=== PATIENT | female | born 1950 | race Caucasian/White ===

== ENCOUNTER 2017-04-05 10:17 | Emergency (ER) | payer MEDICAID ==
[~2017-04-05] VITALS: Ht 162.6 cm; Wt 118.0 kg
[~2017-04-05 10:17] MED LIST: CEPH500C3 PO; HYDR-3533 PO; LORTA5 PO; PRED20 PO
[2017-04-05 10:26] VITALS: BP 224/91; PULSE 95; RESP 18; TEMP 98
[2017-04-05] MEDS ORDERED: MELO7.5T4 PO (10:30)
[2017-04-05] MEDS ORDERED: LOSA50TA PO (10:30)
[2017-04-05 10:59] LABS: AUTOMATED NEUTROPHIL # 4.3 TH/MM3 (1.8-7.7); BASOPHIL % 0.6 % (0.0-2.0); EOSINOPHIL # 0.1 TH/MM3 (0-0.4); EOSINOPHIL % 1.8 % (0.0-4.0); HEMATOCRIT 41.7 % (35.0-46.0); HEMO FLAGS DIFF FINAL; LYMPH % 26.2 % (9.0-44.0); LYMPHOCYTE # 1.7 TH/MM3 (1.0-4.8); MEAN CELL VOLUME 89.6 FL (80.0-100.0); MEAN CORPUSCULAR HEMOGLOBIN 30.9 PG (27.0-34.0); MEAN CORPUSCULAR HGB CONC 34.4 % (32.0-36.0); MONO % 5.9 % (0.0-8.0); NEUT % 65.5 % (16.0-70.0); PLATELET COUNT 253 TH/MM3 (150-450); RED BLOOD COUNT 4.65 MIL/MM3 (4.00-5.30); RED CELL DISTRIBUTION WIDTH 12.5 % (11.6-17.2); WHITE BLOOD COUNT 6.5 TH/MM3 (4.0-11.0)
--- NOTE | 2017-04-05 11:07 | PD ---
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 The patient states she had "change" in her 40s. She states that she's not had bleeding for several years. She reports it started late yesterday. She states that today she started heavier bleeding that soaked a pad. She denies a passage of tissue or clots. She's had no history of previous issues. There are no complaints of pain or cramping. There are no other reported symptoms. PFSH Past Medical History Arthritis: Yes Asthma: Yes Diminished Hearing: No ?: Not Menopausal: Yes Ectopic : Yes Social History Alcohol Use: Yes Tobacco Use: No Substance Use: No Allergies-Medications (Allergen,Severity, Reaction): Coded Allergies: Penicillin (Verified Allergy, Unknown, 04/05/17) Reported Meds & Prescriptions Reported Meds & Active Scripts Active Provera (Medroxyprogesterone Acetate) 10 Mg Tab 10 Mg PO DAILY Start day 16 Reported Meloxicam 7.5 Mg Tab 7.5 Mg PO DAILY Losartan (Losartan Potassium) 50 Mg Tab 50 Mg PO DAILY Review of Systems Except as stated in HPI: all other systems reviewed are Neg General / Constitutional: No: Fever, Chills HENT: No: Headaches, Lightheadedness Cardiovascular: No: Chest Pain or Discomfort, Palpitations Respiratory: No: Cough, Shortness of Breath Gastrointestinal: No: Nausea, Vomiting, Abdominal Pain Genitourinary: Positive: Vaginal Bleeding, No: Frequency, Dysuria, Pelvic Pain Musculoskeletal: Positive: Pain (chronic left knee pain. Patient states she's been worked up for a knee replacement.), No: Weakness Neurologic: No: Weakness, Dizziness Physical Exam Narrative GENERAL: Well-developed well-nourished female in no acute rest her distress. SKIN: Focused skin assessment warm/dry. HEAD: Atraumatic. Normocephalic. EYES: No scleral icterus. No injection or drainage. Conjunctiva are pink and not pale. ENT: Mucous membranes pink and moist. NECK: Trachea midline. No JVD. CARDIOVASCULAR: Regular rate and rhythm. No murmur appreciated. RESPIRATORY: No accessory muscle use. Clear to auscultation. Breath sounds equal bilaterally. GASTROINTESTINAL: Abdomen soft, non-tender, obese. No rebound or guarding. GENITOURINARY: In the presence of auto glass technician mitra and Nancy. Normal external genitalia without lesions or erythema. Vaginal vault with dark blood in the vault. No adnexal masses or palpable uterine masses appreciated. NEUROLOGICAL: Awake and alert. No obvious cranial nerve deficits. Motor grossly within normal limits. Normal speech. Data Data Last Documented VS Vital Signs Date Time Temp Pulse Resp B/P Pulse Ox O2 Delivery O2 Flow Rate FiO2 04/05/17 10:26 98.0 95 18 224/91 Orders Complete Blood Count With Diff (04/05/17 10:26) Basic Metabolic Panel (Bmp) (04/05/17 10:26) Iv Access Insert/Monitor (04/05/17 10:26) Ed Urine Pregnancytest Poc (04/05/17 10:26) Us Pelvis Comp W Transvaginal (04/05/17 ) Labs Laboratory Tests Test 04/05/17 10:35 White Blood Count 6.5 TH/MM3 Red Blood Count 4.65 MIL/MM3 Hemoglobin 14.4 GM/DL Hematocrit 41.7 % Mean Corpuscular Volume 89.6 FL Mean Corpuscular Hemoglobin 30.9 PG Mean Corpuscular Hemoglobin 34.4 % Concent Red Cell Distribution Width 12.5 % Platelet Count 253 TH/MM3 Mean Platelet Volume 8.0 FL Neutrophils (%) (Auto) 65.5 % Lymphocytes (%) (Auto) 26.2 % Monocytes (%) (Auto) 5.9 % Eosinophils (%) (Auto) 1.8 % Basophils (%) (Auto) 0.6 % Neutrophils # (Auto) 4.3 TH/MM3 Lymphocytes # (Auto) 1.7 TH/MM3 Monocytes # (Auto) 0.4 TH/MM3 Eosinophils # (Auto) 0.1 TH/MM3 Basophils # (Auto) 0.0 TH/MM3 CBC Comment DIFF FINAL Differential Comment Sodium Level 139 MEQ/L Potassium Level 3.8 MEQ/L Chloride Level 103 MEQ/L Carbon Dioxide Level 27.1 MEQ/L Anion Gap 9 MEQ/L Blood Urea Nitrogen 15 MG/DL Creatinine 0.91 MG/DL Estimat Glomerular Filtration 62 ML/MIN Rate Random Glucose 240 MG/DL Calcium Level 8.5 MG/DL MDM Medical Decision Making Medical Screen Exam Complete: Yes Emergency Medical Condition: Yes Differential Diagnosis Dysfunction uterine bleeding versus uterine fibroid versus friable cervix Narrative Course 66-year-old female who presents today with complaints of vaginal bleeding since yesterday. The patient has been amenorrheic for several years now. Patient denies any abdominal pain. On vaginal exam, she had dark blood in her vaginal vault. I did not appreciate any masses. Formal ultrasound shows no evidence of fibroids or acute abnormalities. There is a thickened endometrial stripe. I discussed with the patient that this could just be dysfunctional uterine bleeding. We'll start her on Provera 10 mg daily 10 days. She is instructed to follow up with a SPORTS FITNESS AND WELLNESS DIRECTOR doctor for further evaluation. She is also instructed return she does any worsening bleeding, shortness of breath, dizziness, or any other reason the concerns her. Diagnosis Primary Impression: Dysfunctional uterine bleeding Additional Impression: Arthritis of left knee Med/Other Pt SpecificInfo: Prescription(s) given Scripts Medroxyprogesterone Acetate (Provera)10 Mg Tab10 Mg PO DAILY #10 TAB Ref 0 Start day 16 Prov:Navneet Amaya MD 04/05/17 Disposition: LEFT WITHOUT BEING SEEN Navneet Amaya MD April 05, 2017 11:07
[2017-04-05 11:14] LABS: BICARBONATE 27.1 MEQ/L (21.0-32.0); POTASSIUM 3.8 MEQ/L (3.5-5.1)
--- NOTE | 2017-04-05 12:32 | RADRPT ---
EXAM DATE/TIME: 04/05/2017 11:49 [facility] COMPARISON: No previous studies available for comparison. INDICATIONS : Post menopausal bleeding. MEDICAL HISTORY : Hypertension. SURGICAL HISTORY : None. ENCOUNTER: Initial ACUITY: 1 day PAIN SCORE: 0/10 LOCATION: Bilateral pelvis MEASUREMENTS: UTERUS: 7.1 x 6.3 x 4.5 cm ENDOMETRIAL STRIPE: 19 mm RIGHT OVARY: 3.3 x 2.3 x 2.1 cm LEFT OVARY: Non visualized FINDINGS: UTERUS: The myometrium has homogeneous echotexture without mass. The endometrial stripe is somewhat thickened measuring 1.2 cm in maximum width. RIGHT OVARY: Ovary contains no mass or significant cystic lesion. LEFT OVARY: The left ovary was not visualized MISCELLANEOUS: No free fluid. CONCLUSION: 1. Nonvisualization of the left ovary. 2. No free fluid identified within the pelvis. 3. Mildly thickened endometrial stripe. The exam is otherwise unremarkable Daniel Marie MD on April 05, 2017 at 12:26 Board Certified Radiologist. This report was verified electronically.
[2017-04-05] MEDS ORDERED: PROV10TA PO (12:40)
[2017-05-09] MEDS ORDERED: VENTAER INH (06:49)
[2017-05-09] MEDS ORDERED: ASPI81CH CHEW (06:49)
[2017-05-09] MEDS ORDERED: CLON0.1T PO (06:49)
[2017-05-09] MEDS ORDERED: METF1000 PO (06:49)
[2017-05-09] MEDS ORDERED: HYDR25TA5 PO (06:49)
== END 2017-04-05 13:25 | disposition left against medical advice (07) ==
LOC: NEPC 10:17
DX: N93.8 Other specified abnormal uterine and vaginal bleeding (principal); M17.12 Unilateral primary osteoarthritis, left knee
CPT/HCPCS: 76830; 76856; 80048; 85025

== ENCOUNTER 2017-04-22 14:17 | Emergency (ER) | payer MEDICAID ==
[~2017-04-22] VITALS: Ht 162.6 cm; Wt 120.0 kg
[~2017-04-22 14:17] MED LIST changes: -CEPH500C3 PO; -HYDR-3533 PO; -LORTA5 PO; +LOSA50TA PO; +MELO7.5T4 PO; -PRED20 PO; +PROV10TA PO
[2017-04-22 14:19] VITALS: BP 226/126; PULSE 90; RESP 16; TEMP 98.3; O2SAT 98
--- NOTE | 2017-04-22 15:09 | PD ---
Physical Exam Date Seen by Provider: April 22, 2017 Time Seen by Provider: 15:06 Narrative 66 y/o female here with Uterine Bleeding and Abdominal Cramping. Patient recently seen and Dx'd with Dysfunctional Uterine bleeding and treated with Medication with resolution. Symptoms then recently restarted in the past few days. Patient did not F/U with LINE ANALYST. No Fever, Nausea, or Vomitting. No Urinary symptoms. Pain is 8/10. Patient noted to be Hypertensive but appears Stable. Awaiting Bed Placement. Data Data Last Documented VS Vital Signs Date Time Temp Pulse Resp B/P Pulse Ox O2 Delivery O2 Flow Rate FiO2 04/22/17 14:19 98.3 90 16 226/126 98 MDM Medical Record Reviewed: Yes Supervised Visit with ALBERTO: Yes Condition: Stable Tez Faustin April 22, 2017 15:09
[2017-04-22 15:43] VITALS: BP 223/98; PULSE 100; RESP 17; O2SAT 98
[2017-04-22] MEDS ORDERED: PROV10TA PO (17:57)
--- NOTE | 2017-04-22 17:58 | PD ---
HPI . 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 Patient reports she was seen here on April 05 for same. She started bleeding again today. She has used one pad. Patient admits that she has not followed up with gynecology since being seen here on April 05. The bleeding is associated with some lower abdominal pain which she rates as 5/10. She is unaware of any exacerbating factors. Symptoms were previously relieved by Provera. PFS Past Medical History Arthritis: Yes Asthma: Yes Diminished Hearing: No Hypertension: Yes ?: Not Menopausal: Yes Ectopic : Yes Past Surgical History Gynecologic Surgery: Yes (1987, ectopic rupture) Social History Alcohol Use: Yes Tobacco Use: No Substance Use: No Allergies-Medications (Allergen,Severity, Reaction): Coded Allergies: Penicillin (Verified Allergy, Unknown, 04/22/17) Reported Meds & Prescriptions Reported Meds & Active Scripts Active Provera (Medroxyprogesterone Acetate) 10 Mg Tab 10 Mg PO DAILY Start day 16 Reported Meloxicam 7.5 Mg Tab 7.5 Mg PO DAILY Losartan (Losartan Potassium) 50 Mg Tab 50 Mg PO DAILY Review of Systems Except as stated in HPI: all other systems reviewed are Neg General / Constitutional: No: Fever, Chills Gastrointestinal: Positive: Abdominal Pain Genitourinary: Positive: Pelvic Pain, Vaginal Bleeding Physical Exam Narrative GENERAL: Awake and alert and in no acute distress. SKIN: Warm and dry. HEAD: Atraumatic. Normocephalic. EYES: Pupils equal and round. NECK: Trachea midline. CARDIOVASCULAR: Regular rate and rhythm. RESPIRATORY: No accessory muscle use. ABDOMEN: Soft and nontender throughout. MUSCULOSKELETAL: No obvious deformities. No edema. NEUROLOGICAL: Awake and alert. No obvious cranial nerve deficits. Motor grossly within normal limits. Normal speech. PSYCHIATRIC: Appropriate mood and affect; insight and judgment normal. Data Data Last Documented VS Vital Signs Date Time Temp Pulse Resp B/P Pulse Ox O2 Delivery O2 Flow Rate FiO2 04/22/17 15:43 100 17 223/98 98 04/22/17 14:19 98.3 MDM Medical Decision Making Medical Screen Exam Complete: Yes Emergency Medical Condition: Yes Medical Record Reviewed: Yes (records from reviewed. She had sound done at that time which showed a thickened endometrium. She was discharged on Provera 10 mg daily for 10 days.) Differential Diagnosis Differential diagnosis of vaginal bleeding includes but is not limited to dysfunctional uterine bleeding, normal menstrual cycle, ectopic , spontaneous AB, PID. Narrative Course Patient presents with post menopausal vaginal bleeding. She needs to be seen by CLOTH STRETCHER. I will treat her with Provera again and strongly advise her to follow up with CLOTH STRETCHER. Diagnosis Primary Impression: Dysfunctional uterine bleeding Patient Instructions: Dysfunctional Uterine Bleeding (DC), General Instructions Additional Instructions: It is imperative that you follow up with a modeling and simulation analyst. Med/Other Pt SpecificInfo: Prescription(s) given Scripts Medroxyprogesterone Acetate (Provera)10 Mg Tab10 Mg PO DAILY #10 TAB Ref 0 Start day 16 Prov:Court Peoples MD 04/22/17 Disposition: 01 DISCHARGE HOME Condition: Stable Court Peoples MD April 22, 2017 17:58
[2017-04-22 18:00] VITALS: BP 197/100
[2017-05-09] MEDS ORDERED: ASPI81CH CHEW (06:49)
[2017-05-09] MEDS ORDERED: METF1000 PO (06:49)
[2017-05-09] MEDS ORDERED: VENTAER INH (06:49)
[2017-05-09] MEDS ORDERED: HYDR25TA5 PO (06:49)
[2017-05-09] MEDS ORDERED: CLON0.1T PO (06:49)
[2017-06-05] MEDS ORDERED: NORE5TAB PO (14:14)
== END 2017-04-22 18:16 | disposition home or self-care (01) ==
LOC: NEPD 14:17
DX: N93.8 Other specified abnormal uterine and vaginal bleeding (principal); R10.30 Lower abdominal pain, unspecified; I10 Essential (primary) hypertension; Z87.39 Personal history of other diseases of the musculoskeletal system and connective tissue; Z87.09 Personal history of other diseases of the respiratory system
CPT/HCPCS: 99283

== ENCOUNTER → 2017-05-09 | Day surgery (SDC) | payer MEDICAID ==
--- NOTE | 2017-05-07 16:15 | MH ---
cc: VELVET HALL MD DATE OF ADMISSION: 05/09/2017 ADMITTING DIAGNOSIS: This patient is a 66 year-old white female, she is being admitted to [facility] for evaluation of post menopausal bleeding, she is a 7, Para 5 and recently reports that she has had several episodes of moderate bleeding. We have seen her recently in the office and attempted an endometrial sampling but because of her cervix being severely stenosed this could not be done. Because of this we advised her to undergo formal diltation and curettage. PAST MEDICAL HISTORY: Patient has a history of hypertension, she is on Losartan and history of obesity. Her body mass index is 44.6. ALLERGIES PENICILLIN SOCIAL HISTORY: Nonsmoker. REVIEW OF SYSTEMS Significant for the patient having a history of asthma. PHYSICAL EXAMINATION: IN GENERAL: The patient is well developed, severely obese with a history of poor hygiene. VITAL SIGNS: Her blood pressure is 139/82. Pulse is 95. Respirations 20. HEAD, EYES, EARS, NOSE, AND THROAT: The patient had poor oral health, multiple caries. CHEST: Clear to auscultation. CARDIOVASCULAR SYSTEM: Revealed regular rate. ABDOMEN: Obese, bowel sounds are positive. PELVIC: The vulva was normal. Vagina also normal. The uterus is normal in size and there is no adnexal masses. There is some evidence of old blood in the vagina fornix. EXTREMITIES reveal no clubbing, cyanosis or edema. NEUROLOGIC: No gross neurocranial deficit. IMPRESSION: On admission was post menopausal bleeding with failed in office endometrial sampling. PLAN: Plan is for dilation and curettage. MD YAIMA Avery/lazarus /2:24 PM /4:03 PM
[~2017-05-09] VITALS: Ht 162.6 cm; Wt 121.2 kg
[~2017-05-09] MED LIST changes: +ASPI81CH CHEW; +CHLORHEXIDINE GLUCONATE 2 % 1 PACK (2 CLOTHS) TOPICAL PRN; +CLINDAMYCIN INJ 900 MG in SODIUM CHLORIDE 0.9% INJ 100 ML IV ONE; +CLON0.1T PO; +DEXAMETHASONE SOD PHOS 4 MG/ML VIAL ONE; +DO NOT ADM ANY ANTICOAGULANT DRUGS PRN; +FAMOTIDINE 20 MG/2 ML VIAL ONE; +HYDR25TA5 PO; +INSULIN HUMAN REGULAR 1,000 UNITS/10 ML VIAL SQ PRN; +LACTATED RINGER'S 1000 ML IV PRN; +LOSARTAN 50 MG TAB PO ONE; +METF1000 PO; +METOCLOPRAMIDE HCL 10 MG/2 ML VIAL ONE; +METOPROLOL TARTRATE 25 MG TAB PO PRN; +NEOSTIGMINE 3 MG/3 ML SYR IV ONE; +NORE5TAB PO; +ONDANSETRON HCL 4 MG/2 ML VIAL IV PUSH ONE; +POVIDONE IODINE 5% (ANTISEPSIS KIT) 4 APPLICATIONS EACH NARE PRN; +PROPOFOL 200 MG/20 ML AMP IV ONE; +SODIUM CHLORID 0.9% 500 ML IV PRN; +VENTAER INH; +ceFAZolin 2 GM PREMIX 50 ML IV SCH; +cloNIDine HCL 0.1 MG TAB PO ONE
[2017-05-09 06:50] VITALS: BP 199/104; PULSE 90; RESP 18; TEMP 98.3; O2SAT 97
[2017-05-09 10:44] VITALS: BP 147/75; PULSE 70; RESP 16; TEMP 97.5; O2SAT 95
--- NOTE | 2017-05-09 13:56 | EKG ---
Date Performed: 05/09/2017 Time Performed: 06:50:20 PTAGE: 66 years EKG: Sinus rhythm NORMAL ECG NO PREVIOUS TRACING DOCTOR: Mode Eng Interpretating Date/Time 05/09/2017 13:55:31
--- NOTE | 2017-05-09 14:00 | MP ---
cc: RICHRADSON HUANG MD DATE OF SURGERY 05/09/17 PREOPERATIVE DIAGNOSIS Postmenopausal bleeding. POSTOPERATIVE DIAGNOSIS Postmenopausal bleeding. OPERATION Dilation and curettage. SURGEON MD Sal ANESTHESIA General. ESTIMATED BLOOD LOSS Minimal. FINDINGS Findings were consistent with a grossly enlarged uterus. Curettings appeared copious in nature. COMPLICATIONS None. 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 PROCEDURE IN DETAIL The patient was prepped and draped in dorsal lithotomy position. A weighted speculum was placed in the posterior vaginal vault and the anterior lip of the cervix was grasped with a single-tooth tenaculum. The cervix was dilated with Kailash dilators and sounded approximately 9 cm. Sharp curetting instruments was entered into the endometrial cavity and curettings were taken. Afterwards good hemostasis was noted. Tenaculum and speculum were removed. The patient returned to the recovery room in stable condition. Richardson Huang MD JSG/EO /9:18 AM /1:51 PM
== END | disposition home or self-care (01) ==
LOC: HSDC 06:15
PROVIDERS: ATTEND Obstetrics & Gynecology
DX: N85.01 Benign endometrial hyperplasia (principal); N95.0 Postmenopausal bleeding; I10 Essential (primary) hypertension; J45.909 Unspecified asthma, uncomplicated; E11.9 Type 2 diabetes mellitus without complications; E66.9 Obesity, unspecified; Z68.42 Body mass index [BMI] 45.0-49.9, adult; Z88.0 Allergy status to penicillin; Z79.82 Long term (current) use of aspirin; Z79.84 Long term (current) use of oral hypoglycemic drugs
CPT/HCPCS: 00940; 58120; 88305; 93005; J1100; J2405; J2710; J2765; J3010; J7120

== ENCOUNTER 2017-11-19 14:23 | Observation (INO) | payer MEDICAID ==
[2017-11-19] VITALS (10 sets, daily range): BP systolic 160–236; BP diastolic 72–100; PULSE 76–105; RESP 17–18; TEMP 98.1–98.4; O2SAT 95–100
[~2017-11-19 14:23] MED LIST changes: +ASPI-516 CHEW; -ASPI81CH CHEW; -CHLORHEXIDINE GLUCONATE 2 % 1 PACK (2 CLOTHS) TOPICAL PRN; -CLINDAMYCIN INJ 900 MG in SODIUM CHLORIDE 0.9% INJ 100 ML IV ONE; -DEXAMETHASONE SOD PHOS 4 MG/ML VIAL ONE; -DO NOT ADM ANY ANTICOAGULANT DRUGS PRN; -FAMOTIDINE 20 MG/2 ML VIAL ONE; -INSULIN HUMAN REGULAR 1,000 UNITS/10 ML VIAL SQ PRN; -LACTATED RINGER'S 1000 ML IV PRN; -LOSARTAN 50 MG TAB PO ONE; +MELO7.5T27 PO; -MELO7.5T4 PO; -METOCLOPRAMIDE HCL 10 MG/2 ML VIAL ONE; -METOPROLOL TARTRATE 25 MG TAB PO PRN; -NEOSTIGMINE 3 MG/3 ML SYR IV ONE; -ONDANSETRON HCL 4 MG/2 ML VIAL IV PUSH ONE; -POVIDONE IODINE 5% (ANTISEPSIS KIT) 4 APPLICATIONS EACH NARE PRN; -PROPOFOL 200 MG/20 ML AMP IV ONE; -PROV10TA PO; -SODIUM CHLORID 0.9% 500 ML IV PRN; -ceFAZolin 2 GM PREMIX 50 ML IV SCH; -cloNIDine HCL 0.1 MG TAB PO ONE
--- NOTE | 2017-11-19 15:21 | PD ---
HPI Chief Complaint: Chest Pain Time Seen by Provider: 14:57 Travel History International Travel<30 days: No Contact w/Intl Traveler<30days: No Traveled to known affect area: No History of Present Illness HPI 67yo F with PMH of HTN and DM presents to the ED with c/o sensation of an elephant sitting on her chest at 1pm today. Associated with sob. Feels like her bronchitis but has not had this in a while. Denies any fever, n/v, abdominal pain, focal weakness or numbness. No edge burnisher uppers. Denies any recent stress test. Used ventolin and it did not help. PFSH Past Medical History Arthritis: Yes Asthma: Yes Cardiovascular Problems: Yes (HTN) Diabetes: Yes Patient Takes Glucophage: Yes Diminished Hearing: No Hypertension: Yes Musculoskeletal: Yes (ARTHRITIS) Respiratory: Yes (COPD) Tetanus Vaccination: < 5 Years ?: Not Menopausal: Yes Ectopic : Yes Past Surgical History Gynecologic Surgery: Yes (1988, ectopic rupture) Other Surgery: Yes (D&c) Social History Alcohol Use: No Tobacco Use: No Substance Use: No Allergies-Medications (Allergen,Severity, Reaction): Coded Allergies: penicillin G (Unverified Allergy, Unknown, 11/19/17) Reported Meds & Prescriptions Reported Meds & Active Scripts Active Ventolin Hfa 18 GM Inh (Albuterol Sulfate) 90 Mcg/Act Aer 2 Puff INH Q4H PRN Deltasone (Prednisone) 20 Mg Tab 20 Mg PO BID 5 Days Reported Aspirin 81 Mg Chew 81 Mg CHEW DAILY Ventolin Hfa 18 GM Inh (Albuterol Sulfate) 90 Mcg/Act Aer 2 Puff INH Q6H PRN Metformin (Metformin HCl) 1,000 Mg Tab 1,000 Mg PO BIDPC With meals Clonidine (Clonidine HCl) 0.1 Mg Tab 0.1 Mg PO BID Hydrochlorothiazide 25 Mg Tab 25 Mg PO DAILY Meloxicam 7.5 Mg Tab 7.5 Mg PO DAILY Losartan (Losartan Potassium) 50 Mg Tab 50 Mg PO DAILY Review of Systems Except as stated in HPI: all other systems reviewed are Neg Physical Exam Narrative GENERAL: 67yo not in distress. SKIN: Focused skin assessment warm/dry. HEAD: Atraumatic. Normocephalic. EYES: Pupils equal and round. No scleral icterus. No injection or drainage. ENT: No nasal bleeding or discharge. Mucous membranes pink and moist. NECK: Trachea midline. No JVD. CARDIOVASCULAR: Regular rate and rhythm. No murmur appreciated. RESPIRATORY: No accessory muscle use. Clear to auscultation. Breath sounds equal bilaterally. GASTROINTESTINAL: Abdomen soft, non-tender, nondistended. MUSCULOSKELETAL: No obvious deformities. No clubbing. No cyanosis. No edema. NEUROLOGICAL: Awake and alert. No obvious cranial nerve deficits. Motor grossly within normal limits. Normal speech. PSYCHIATRIC: Appropriate mood and affect; insight and judgment normal. Data Data Last Documented VS Vital Signs Date Time Temp Pulse Resp B/P (MAP) Pulse Ox O2 Delivery O2 Flow Rate FiO2 11/19/17 14:53 76 17 164/72 (102) 100 Room Air 11/19/17 14:25 98.4 Orders Orders Electrocardiogram (11/19/17 ) Basic Metabolic Panel (Bmp) (11/19/17 15:05) B-Type Natriuretic Peptide (11/19/17 15:05) Complete Blood Count With Diff (11/19/17 15:05) Prothrombin Time / Inr (Pt) (11/19/17 15:05) Act Partial Throm Time (Ptt) (11/19/17 15:05) Troponin I (11/19/17 15:05) Chest, Single Ap (11/19/17 15:05) Albuterol-Ipratropium Neb (Duoneb Neb) (11/19/17 15:30) Prednisone (Deltasone) (11/19/17 15:30) Potassium, Serum (K) (11/19/17 16:28) Sodium Chlor 0.9% 1000 Ml Inj (Ns 1000 M (11/19/17 17:15) Admit Order (Ed Use Only) (11/19/17 18:43) Labs Laboratory Tests Test 11/19/17 15:10 11/19/17 16:57 White Blood Count 9.2 TH/MM3 Red Blood Count 4.33 MIL/MM3 Hemoglobin 13.5 GM/DL Hematocrit 39.8 % Mean Corpuscular Volume 92.0 FL Mean Corpuscular Hemoglobin 31.3 PG Mean Corpuscular Hemoglobin Concent 34.0 % Red Cell Distribution Width 12.4 % Platelet Count 328 TH/MM3 Mean Platelet Volume 8.4 FL Neutrophils (%) (Auto) 71.2 % Lymphocytes (%) (Auto) 21.8 % Monocytes (%) (Auto) 4.4 % Eosinophils (%) (Auto) 1.7 % Basophils (%) (Auto) 0.9 % Neutrophils # (Auto) 6.6 TH/MM3 Lymphocytes # (Auto) 2.0 TH/MM3 Monocytes # (Auto) 0.4 TH/MM3 Eosinophils # (Auto) 0.2 TH/MM3 Basophils # (Auto) 0.1 TH/MM3 CBC Comment DIFF FINAL Differential Comment Prothrombin Time 9.7 SEC Prothromb Time International Ratio 1.0 RATIO Activated Partial Thromboplast Time 21.8 SEC Blood Urea Nitrogen 14 MG/DL Creatinine 1.33 MG/DL Random Glucose 311 MG/DL Calcium Level 8.9 MG/DL Sodium Level 132 MEQ/L Potassium Level 5.8 MEQ/L 3.8 MEQ/L Chloride Level 100 MEQ/L Carbon Dioxide Level 27.3 MEQ/L Anion Gap 5 MEQ/L Estimat Glomerular Filtration Rate 40 ML/MIN Troponin I LESS THAN 0.02 NG/ML B-Type Natriuretic Peptide 57 PG/ML [facility] Medical Decision Making Medical Screen Exam Complete: Yes Emergency Medical Condition: Yes Interpretation(s) EKG: NSR 79bpm. Normal axis. TWI V2. No ST segment elevation or depression. Differential Diagnosis ACS vs. Pneumonia vs. COPD Narrative Course 67yo F with sensation of "elephant sitting on her chest" since 1pm today. Pt with cardiac risk factors including DM, HTN and obesity. Denies being a smoker but said bronchitis runs in her family. She is not wheezing but has history of bronchitis so will give nebulizers. Labs reviewed, no leukocytosis. K: 5.8 but hemolyzed. Repeat K is 3.8. Troponin negative. BNP 57. Glucose elevated at 311, normal anion gap. CO2 normal. Pt given NS IVF. Pt given duonebs and prednisone and feels better. Denies any sob or chest pain. CXR showed normal exam except trachea deviated from left to right suspected to be related to goiter. Informed pt and she can follow up as outpatient. Pt is well appearing. However, still want to admit for repeat EKG and cardiac enzyme for chest pain given risk factor. BP elevated and due for her losartan 50mg PO so given. Diagnosis Primary Impression: Chest pain Qualified Codes: R07.9 - Chest pain, unspecified Additional Impression: COPD exacerbation Med/Other Pt SpecificInfo: Prescription(s) given Scripts Albuterol 18 GM Inh (Ventolin Hfa 18 GM Inh) 90 Mcg/Act Aer 2 PUFF INH Q4H Y for SHORTNESS OF BREATH, #1 INHALER 0 Refills Prov: Imelda Campo DO 11/19/17 Prednisone (Deltasone) 20 Mg Tab 20 MG PO BID for 5 Days, #10 TAB 0 Refills Prov: Imelda Campo DO 11/19/17 Imelda Campo DO Nov 19, 2017 15:21
[2017-11-19] MEDS ORDERED: predniSONE 50 MG TAB PO ONE (15:30)
[2017-11-19 15:43] LABS: AUTOMATED NEUTROPHIL # 6.6 TH/MM3 (1.8-7.7); BASOPHIL # 0.1 TH/MM3 (0-0.2); BASOPHIL % 0.9 % (0.0-2.0); EOSINOPHIL # 0.2 TH/MM3 (0-0.4); EOSINOPHIL % 1.7 % (0.0-4.0); HEMATOCRIT 39.8 % (35.0-46.0); HEMO FLAGS DIFF FINAL; LYMPH % 21.8 % (9.0-44.0); MEAN CORPUSCULAR HEMOGLOBIN 31.3 PG (27.0-34.0); MONO % 4.4 % (0.0-8.0); NEUT % 71.2 % (16.0-70.0); PLATELET COUNT 328 TH/MM3 (150-450); RED BLOOD COUNT 4.33 MIL/MM3 (4.00-5.30); RED CELL DISTRIBUTION WIDTH 12.4 % (11.6-17.2); WHITE BLOOD COUNT 9.2 TH/MM3 (4.0-11.0)
--- NOTE | 2017-11-19 15:52 | RADRPT ---
EXAM DATE/TIME: 11/19/2017 15:26 [facility] COMPARISON: No previous studies available for comparison. INDICATIONS : Chest pain started today. MEDICAL HISTORY : Hypertension. SURGICAL HISTORY : None. ENCOUNTER: Initial ACUITY: 1 day PAIN SCORE: 5/10 LOCATION: Bilateral chest FINDINGS: A single view of the chest demonstrates the lungs to be symmetrically aerated without evidence of mas s, infiltrate or effusion. The cardiomediastinal contours are unremarkable. Osseous structures are intact. CONCLUSION: Normal examination except that the trachea is deviated from left to right suspected to be related to goiter. Jonhnie Mao MD on November 19, 2017 at 15:49 Board Certified Radiologist. This report was verified electronically.
[2017-11-19 15:53] LABS: APTT (PATIENT) 21.8 SEC (24.3-30.1); PROTHROMBIN TIME - PATIENT 9.7 SEC (9.8-11.6)
[2017-11-19] MEDS: RESP: ALBUTEROL 2.5 MG/IPRATROPIUM 0.5 MG NEB (SCH) INH (16:00)
[2017-11-19 16:06] LABS: ANION GAP 5 MEQ/L (5-15); BICARBONATE 27.3 MEQ/L (21.0-32.0); BLOOD UREA NITROGEN 14 MG/DL (7-18); CHLORIDE 100 MEQ/L (98-107); GLOMERULAR FILTRATION RATE 40 ML/MIN (>89); SODIUM (NA) 132 MEQ/L (136-145)
[2017-11-19 16:07] LABS: POTASSIUM 5.8 MEQ/L (3.5-5.1)
[2017-11-19] MEDS ORDERED: SODIUM CHLOR 0.9% 1000 ML INJ 1,000 ML IV ONE (17:15)
[2017-11-19] MEDS ORDERED: PRED-503 PO (18:50)
[2017-11-19] MEDS ORDERED: VENTAER INH (18:50)
[2017-11-19] MEDS ORDERED: ASPIRIN 325 MG TAB PO ONE (19:00)
[2017-11-19] MEDS ORDERED: SODIUM CHLORIDE 0.9% FLUSH 10 ML FLUSH IV FLUSH PRN (19:00)
[2017-11-19 19:44] LABS: CREATINE KINASE 80 U/L (26-192)
[2017-11-19] MEDS ORDERED: LOSARTAN 50 MG TAB PO ONE (19:45)
[2017-11-19] MEDS: SODIUM CHLORIDE 0.9% FLUSH 10 ML FLUSH IV FLUSH SCH (21:01)
[2017-11-20 03:57] VITALS: BP 171/78; PULSE 70; RESP 19; TEMP 97.4; O2SAT 95
[2017-11-20 05:33] VITALS: PULSE 64
[2017-11-20 06:57] VITALS: PULSE 75
[2017-11-20 07:34] VITALS: BP 127/60; PULSE 70; RESP 18; TEMP 98; O2SAT 97
[2017-11-20] MEDS ORDERED: ONDANSETRON HCL 4 MG/2 ML VIAL IV PUSH PRN (07:45)
[2017-11-20] MEDS ORDERED: NITROGLYCERIN 0.4 MG SL 25 TABS/BTL SL PRN (07:45)
[2017-11-20] MEDS ORDERED: ACETAMINOPHEN 500 MG CPLT PO PRN (07:45)
[2017-11-20] MEDS: SODIUM CHLORIDE 0.9% FLUSH 10 ML FLUSH IV FLUSH SCH (08:03)
--- NOTE | 2017-11-20 08:07 | HHI.HP ---
HPI Primary Care Physician Thor Schumacher DO Chief Complaint Chest pain History of Present Illness 67-year-old female with history of hypertension, diabetes, and COPD presents to emergency room for further evaluation after developing chest pain during a "bronchitis attack." Onset yesterday afternoon. Location substernal. Characterized as "someone sitting on my chest." No radiation of pain. Duration 20-30 minutes. No associated symptoms of nausea, vomiting, dyspnea, or diaphoresis. No known precipitating or relieving factors. Denies similar pain in the past. Endorses current "dry cough." No sputum production. No recent fever or chills. Currently is chest pain-free. Review of Systems General: No fatigue,weakness, fever, chills, or recent illness change in appetite. Has been her general state of health. HEENT: No BETHEA, no vision changes, no nasal congestion or drainage, no dysphasia CV: As stated above. No current CP or pressure. No palpitations, intermittent leg pain, dizziness RESP: Current nonproductive cough. History of COPD. No shortness of breath, wheeze, or hemoptysis GI: No nausea, vomiting, bowel changes, diarrhea, constipation, pain, distention , melena, blood in the stool. No change in appetite, no unintentional weight gain or weight loss. : No dysuria, urgency, frequency EXT: No lower leg edema MS: No discomfort or change in ROM NEURO: No difficulty with balance, LOC, motor/sensory deficits PSYCH: No anxiety, depression SKIN: No rashes, no concerning lesions Past Family Social History Allergies: Coded Allergies: penicillin G (Unverified Allergy, Unknown, 11/19/17) Past Medical History Hypertension, type II diabetic, COPD, arthritis Past Surgical History D&C Reported Medications Reported Meds & Active Scripts Active Ventolin Hfa 18 GM Inh (Albuterol Sulfate) 90 Mcg/Act Aer 2 Puff INH Q4H PRN Deltasone (Prednisone) 20 Mg Tab 20 Mg PO BID 5 Days Reported Aspirin 81 Mg Chew 81 Mg CHEW DAILY Ventolin Hfa 18 GM Inh (Albuterol Sulfate) 90 Mcg/Act Aer 2 Puff INH Q6H PRN Metformin (Metformin HCl) 1,000 Mg Tab 1,000 Mg PO BIDPC With meals Clonidine (Clonidine HCl) 0.1 Mg Tab 0.1 Mg PO BID Hydrochlorothiazide 25 Mg Tab 25 Mg PO DAILY Meloxicam 7.5 Mg Tab 7.5 Mg PO DAILY Losartan (Losartan Potassium) 50 Mg Tab 50 Mg PO DAILY Active Ordered Medications Current Medications Medications (Trade) Dose Ordered Sig/Yvan Route Start Time Stop Time Status Last Admin (NS Flush) 2 ml UNSCH PRN IV FLUSH 11/19/17 19:00 (NS Flush) 2 ml BID IV FLUSH 11/19/17 21:00 11/20/17 08:03 (Tylenol) 500 mg Q4H PRN PO 11/20/17 07:45 (Zofran Inj) 4 mg Q6H PRN IV PUSH 11/20/17 07:45 (Nitrostat Sl) 0.4 mg Q5M PRN SL 11/20/17 07:45 (Aspirin) 325 mg DAILY PO 11/20/17 09:00 11/20/17 08:03 Family History Brother age 55 myocardial infarction. Social History Known hypertension and type 2 diabetes. No known hyperlipidemia. Currently not taking statin with diagnosis of diabetes. Clinical nonsmoker. Denies any alcohol. Endorses sets here lifestyle. Past cardiac testing None Physical Exam Vital Signs Vital Signs Date Time Temp Pulse Resp B/P (MAP) Pulse Ox O2 Delivery O2 Flow Rate FiO2 11/20/17 07:34 98.0 70 18 127/60 (82) 97 11/20/17 06:57 75 11/20/17 05:33 64 11/20/17 03:57 97.4 70 19 171/78 (109) 95 11/19/17 23:26 76 11/19/17 23:09 98.1 78 17 166/77 (106) 95 11/19/17 22:15 11/19/17 21:43 77 160/74 (102) 11/19/17 21:31 79 170/73 (105) 11/19/17 21:13 99 11/19/17 21:01 180/88 (118) 11/19/17 20:04 172/82 (112) 11/19/17 19:06 87 192/91 (124) 11/19/17 14:53 76 17 164/72 (102) 100 Room Air 11/19/17 14:44 82 99 Room Air 11/19/17 14:25 98.4 105 18 236/100 (145) 97 Room Air Physical Exam GENERAL: Alert WN, WD, NAD, pleasant, obese female who appears older than stated age. HEAD: NC, AT EYES: Sclera clear, conjunctiva without injection ENT: Mucous membranes pink and moist CV: RRR, without murmur, rub, gallop, no JVD, S1-S2 no S3-S4. RESP: Clear lungs throughout bilateral, no crackles, wheeze, rhonchi, symmetrical chest rise, nonlabored, able to speak in full sentences ABD: Soft, NT, ND, no masses, positive bowel tones EXT: Pulses +24, no dependent edema MS: Normal tone 4 extremities, no obvious deformities, full range of motion NEURO: CN II through CN XII grossly intact, motor strength 5/5 PSYCH: A+O 3, pleasant affect, appropriate speech, appropriate mood and affect , insight and judgment SKIN: Normal turgor, normal texture, no lesions, no rashes, brisk cap refill, even hair distribution Laboratory Laboratory Tests Test 11/19/17 15:10 11/19/17 16:57 11/19/17 19:05 11/19/17 23:30 White Blood Count 9.2 Red Blood Count 4.33 Hemoglobin 13.5 Hematocrit 39.8 Mean Corpuscular Volume 92.0 Mean Corpuscular Hemoglobin 31.3 Mean Corpuscular Hemoglobin Concent 34.0 Red Cell Distribution Width 12.4 Platelet Count 328 Mean Platelet Volume 8.4 Neutrophils (%) (Auto) 71.2 Lymphocytes (%) (Auto) 21.8 Monocytes (%) (Auto) 4.4 Eosinophils (%) (Auto) 1.7 Basophils (%) (Auto) 0.9 Neutrophils # (Auto) 6.6 Lymphocytes # (Auto) 2.0 Monocytes # (Auto) 0.4 Eosinophils # (Auto) 0.2 Basophils # (Auto) 0.1 CBC Comment DIFF FINAL Differential Comment Prothrombin Time 9.7 Prothromb Time International Ratio 1.0 Activated Partial Thromboplast Time 21.8 Blood Urea Nitrogen 14 Creatinine 1.33 Random Glucose 311 Calcium Level 8.9 Sodium Level 132 Potassium Level 5.8 3.8 Chloride Level 100 Carbon Dioxide Level 27.3 Anion Gap 5 Estimat Glomerular Filtration Rate 40 Troponin I LESS THAN 0.02 LESS THAN 0.02 0.03 B-Type Natriuretic Peptide 57 Total Creatine Kinase 80 40 Result Diagram: 11/19/17 1510 11/19/17 1657 Imaging Last Impressions Chest X-Ray 11/19/17 1505 Signed Impressions: Service Date/Time: Sunday, November 19, 2017 15:26 - CONCLUSION: Normal examination except that the trachea is deviated from left to right suspected to be related to goiter. Johnnie Mao MD Course EKG Sinus rhythm, normal axis, no ST or T-segment changes Caprini VTE Risk Assessment Caprini VTE Risk Assessment: No/Low Risk (score <= 1) Caprini Risk Assessment Model Point Value = 1 Point Value = 2 Point Value = 3 Point Value = 5 Age 41-60 Minor surgery BMI > 25 kg/m2 Swollen legs Varicose veins or History of unexplained or recurrent spontaneous Oral contraceptives or hormone replacement Sepsis (< 1 month) Serious lung disease, including pneumonia (< 1 month) Abnormal pulmonary function Acute myocardial infarction Congestive heart failure (< 1 month) History of inflammatory bowel disease Medical patient at bed rest Age 61-74 Arthroscopic surgery Major open surgery (> 45 min) Laparoscopic surgery (> 45 min) Malignancy Confined to bed (> 72 hours) Immobilizing plaster cast Central venous access Age >= 75 History of VTE Family history of VTE Factor V Leiden Prothrombin [id number] Lupus anticoagulant Anticardiolipin antibodies Elevated serum homocysteine Heparin-induced thrombocytopenia Other congenital or acquired thrombophilia Stroke (< 1 month) Elective arthroplasty Hip, pelvis, or leg fracture Acute spinal cord injury (< 1 month) Prophylaxis Regimen Total Risk Factor Score Risk Level Prophylaxis Regimen 0-1 Low Early ambulation 2 Moderate Order ONE of the following: *Sequential Compression Device (SCD) *Heparin 5000 units SQ BID 3-4 Higher Order ONE of the following medications: *Heparin 5000 units SQ TID *Enoxaparin/Lovenox 40 mg SQ daily (WT < 150 kg, CrCl > 30 mL/min) *Enoxaparin/Lovenox 30 mg SQ daily (WT < 150 kg, CrCl > 10-29 mL/min) *Enoxaparin/Lovenox 30 mg SQ BID (WT < 150 kg, CrCl > 30 mL/min) AND/OR *Sequential Compression Device (SCD) 5 or more Highest Order ONE of the following medications: *Heparin 5000 units SQ TID (Preferred with Epidurals) *Enoxaparin/Lovenox 40 mg SQ daily (WT < 150 kg, CrCl > 30 mL/min) *Enoxaparin/Lovenox 30 mg SQ daily (WT < 150 kg, CrCl > 10-29 mL/min) *Enoxaparin/Lovenox 30 mg SQ BID (WT < 150 kg, CrCl > 30 mL/min) AND *Sequential Compression Device (SCD) Assessment and Plan Assessment and Plan #1 Chest pain-admitted to chest pain center. Ruled out with 3 sets of EKGs, cardiac enzymes, and monitored overnight. Seen and evaluated by Dr. Winston Schreiber. Proceed with chemical stress test. If unremarkable, plans would be to discharge home with follow up with PCP. #2 History of COPD-lungs clear, no acute findings, continue albuterol therapy. #3 Diabetes type 2-continue Metformin after eating. Encouraged her to discuss with her PCP starting statin therapy due to known diabetes. Verbalized understanding #4 Hypertension-continue Losartan [facility] Nov 20, 2017 08:07
[2017-11-20] MEDS ORDERED: ASPIRIN 325 MG TAB PO SCH (09:00)
--- NOTE | 2017-11-20 09:43 | EKG ---
Date Performed: 11/19/2017 Time Performed: 23:22:57 PTAGE: 67 years EKG: Sinus rhythm LOW QRS VOLTAGE IN PRECORDIAL LEADS BORDERLINE ECG PREVIOUS TRACING : 11/19/2017 23.21 Since previous tracing, no significant change noted DOCTOR: Winston Schreiber Interpretating Date/Time 11/20/2017 09:41:58
--- NOTE | 2017-11-20 09:45 | EKG ---
Date Performed: 11/19/2017 Time Performed: 21:47:27 PTAGE: 67 years EKG: Sinus rhythm LOW QRS VOLTAGE IN PRECORDIAL LEADS BORDERLINE ECG PREVIOUS TRACING : 11/19/2017 19.10 Since previous tracing, no significant change noted DOCTOR: Winston Schreiber Interpretating Date/Time 11/20/2017 09:44:21
--- NOTE | 2017-11-20 09:47 | EKG ---
Date Performed: 11/19/2017 Time Performed: 19:10:40 PTAGE: 67 years EKG: Sinus rhythm LOW QRS VOLTAGE IN PRECORDIAL LEADS BORDERLINE ECG PREVIOUS TRACING : 11/19/2017 15.06 Since previous tracing, no significant change noted DOCTOR: Winston Schreiber Interpretating Date/Time 11/20/2017 09:46:09
--- NOTE | 2017-11-20 09:48 | EKG ---
Date Performed: 11/19/2017 Time Performed: 15:06:59 PTAGE: 67 years EKG: Sinus rhythm LOW QRS VOLTAGE IN PRECORDIAL LEADS BORDERLINE ECG PREVIOUS TRACING : 05/09/2017 06.50 Since previous tracing, no significant change noted DOCTOR: Winston Schreiber Interpretating Date/Time 11/20/2017 09:47:37
[2017-11-20] MEDS ORDERED: LOSARTAN 50 MG TAB PO SCH (11:00)
[2017-11-20 11:38] VITALS: BP 151/72; PULSE 75; RESP 20; TEMP 97.6; O2SAT 97
[2017-11-20] MEDS ORDERED: REGADENOSON INJ 0.4 MG/5 ML SYR ONE (13:49)
--- NOTE | 2017-11-20 15:24 | RADRPT ---
EXAM DATE/TIME: 11/20/2017 13:21 [facility] COMPARISON: No previous studies available for comparison. INDICATIONS : Substernal chest pain with dyspnea. Angina. DOSE: 35 mCi Tc99m Myoview at stress. 11 mCi Tc99m Myoview at rest. 0.4 mg Lexiscan STRESS SYMPTOMS: Asymptomatic. EJECTION FRACTION: 66% MEDICAL HISTORY : Hypertension. Diabetes mellitus type 2. Chronic obstructive pulmonary disease. SURGICAL HISTORY : None. ENCOUNTER: Initial ACUITY: 1 day PAIN SCALE: 7/10 LOCATION: Substernal chest TECHNIQUE: The patient underwent pharmacologic stress with infusion of prescribed dose. Continuous ECG tracing was monitored during stress. Gated SPECT imaging was performed after stress and conventional SPECT i maging was performed at rest. The examination was performed on a SPECT/CT scanner, both attenuation and non-corrected datasets were reviewed. FINDINGS: DISTRIBUTION: The maximum perfused segment at stress is in the inferior wall. PERFUSION STUDY: The pattern of perfusion at stress shows fixed diminished perfusion to the low anterior and lateral w alls extending into the apex. GATED STUDY: There is intact wall motion and thickening without hypokinetic or dyskinetic segments. CONCLUSION: 1. The diminished perfusion to the low anterior and lateral wall extending into the apex possibly rep resenting an old area of infarction. 2. No reversibility to suggest ischemia. 3. Adequate wall motion throughout with estimated ejection fraction of 66%. RISK CATEGORY: Low (<1% Annual Mortality Rate) Elkin Herrera MD on November 20, 2017 at 15:13 Board Certified Radiologist. This report was verified electronically.
--- NOTE | 2017-11-20 15:43 | HHI.DCPOC ---
Discharge Care Plan Diagnosis: (1) Atypical chest pain Goals to Promote Your Health * To prevent worsening of your condition and complications * To maintain your health at the optimal level Directions to Meet Your Goals Take your medications as prescribed Follow your dietary instruction Follow activity as directed Keep your appointments as scheduled Take your immunizations and boosters as scheduled If your symptoms worsen call your PCP, if no PCP go to Urgent Care Center or Emergency Room Smoking is Dangerous to Your Health. Avoid second hand smoke Call the 24-hour hour crisis hotline for domestic abuse at [facility] Nov 20, 2017 15:43
--- NOTE | 2017-11-21 13:01 | TR ---
Date Performed: 11/20/2017 Time Performed: 13:42:15 DOCTOR: Carlos Alberto Fay DRUG LIST: CLINICAL HISTORY: CHEST PAIN REASON FOR TEST: CHEST PAIN REASON FOR ENDING: OBSERVATION: CONCLUSION: Lexiscan stress test was performed under standard four minute protocol. Radionuclid e was injected one minute prior to ending the test. No electrocardiographic abormalities were present to suggest ischemia. Nuclear imaging and interpretation are pending. COMMENTS:
== END 2017-11-20 18:00 | disposition home or self-care (01) ==
LOC: NEPC 14:23 → NEDA 18:44 → NEPFCDU 22:17
PROVIDERS: ADMIT Internal Medicine Interventional Cardiology; ATTEND Internal Medicine Interventional Cardiology
DX: R07.89 Other chest pain (principal); J44.9 Chronic obstructive pulmonary disease, unspecified; R06.00 Dyspnea, unspecified; I10 Essential (primary) hypertension; I20.9 Angina pectoris, unspecified; E11.9 Type 2 diabetes mellitus without complications; M19.90 Unspecified osteoarthritis, unspecified site; E66.9 Obesity, unspecified; Z79.899 Other long term (current) drug therapy; Z79.82 Long term (current) use of aspirin; Z79.84 Long term (current) use of oral hypoglycemic drugs; Z82.5 Family history of asthma and other chronic lower respiratory diseases
CPT/HCPCS: 71010; 78452; 80048; 82550; 83880; 84132; 84484; 85025; 85610; 85730; 93005; 93017; 94640; 94664; 96360; 96361; 99285; A9502; G0378; J2785; J7030; J7512